=== PATIENT | female | born 2000 | race Caucasian/White ===

== ENCOUNTER 2022-04-02 13:05 | Outpatient (CLI) | payer BC, SELFPAY ==
--- NOTE | ~2022-04-02 | US_ITS ---
US breast LT limited DATE: 04/02/2022 13:36 INDICATION: Left breast lump TECHNIQUE: Real time and color flow imaging of the left breast targeted at 12:00 4 cm from nipple at area of complaint COMPARISON: None FINDINGS: No discrete mass lesion or suspicious shadowing is detected. IMPRESSION: BIRADS Category 3: Probably benign RECOMMENDATION: Short term follow up ultrasound imaging in 3 to 6 months if complaint persists Reviewed, dictated and finalized at [facility]. Reviewed, dictated and finalized at [facility]. IMPRESSION: BIRADS Category 3: Probably benign RECOMMENDATION: Short term follow up ultrasound imaging in 3 to 6 months if co mplaint persists
== END 2022-04-02 13:06 | disposition home or self-care (01) ==
LOC: ANHIMG 13:09
PROVIDERS: PCP Nurse Practitioner Family; Visit Provider Obstetrics & Gynecology
DX: N63.25 Unspecified lump in the left breast, overlapping quadrants (principal)
CPT/HCPCS: 76642

== ENCOUNTER 2022-07-02 12:33 | Outpatient (CLI) | payer BC, SELFPAY ==
--- NOTE | ~2022-07-02 | US_ITS ---
US breast LT limited INDICATION: Palpable left breast TECHNIQUE: Limited left breast ultrasound COMPARISON: 04/02/2022 FINDINGS: The left breast is composed of normal heterogeneous echotexture without focal solid or cyst ic mass. IMPRESSION: 1: Normal left breast ultrasound. BI-RADS CATEGORY 1 - NEGATIVE Reviewed, dictated and finalized at [facility]. [employer]
== END 2022-07-02 12:34 | disposition home or self-care (01) ==
LOC: ANHIMG 12:36
PROVIDERS: PCP Nurse Practitioner Family; Visit Provider Obstetrics & Gynecology
DX: N63.20 Unspecified lump in the left breast, unspecified quadrant (principal)
CPT/HCPCS: 76642

== ENCOUNTER 2025-06-28 16:27 | Outpatient (CLI) | payer OTHER, SELFPAY ==
[2025-06-28 17:31] LABS: Syphilis IgG/IgM Antibody Non-Reactive (Nonreactive)
[2025-06-28 17:38] LABS: Hepatitis B Surface Antigen Negative (Negative)
[2025-06-28 17:43] LABS: HIV 1/2 Ab P24 Ag Result Negative (Negative)
[2025-06-28 17:44] LABS: HAV RESULT Negative (Negative); Hepatitis B Core IgM Result Negative (Negative)
[2025-06-29 06:08] LABS: HSV 1 IgG, Type Spec Non Reactive (Non Reactive); HSV 2 IgG, Type Spec Non Reactive (Non Reactive)
== END 2025-06-28 16:28 | disposition home or self-care (01) ==
LOC: ANHLAB 16:29
PROVIDERS: Visit Provider Student in an Organized Health Care Education/Training Program
DX: Z20.2 Contact with and (suspected) exposure to infections with a predominantly sexual mode of transmission (principal)
CPT/HCPCS: 36415; 80074; 86593; 86695; 86696; 86703; G0432